=== PATIENT | female | born 1985 | race Hispanic/Latino ===

== ENCOUNTER 2019-01-18 03:09 | Inpatient (IN) ==
[2019-01-18 03:44] LABS: Hemoglobin 11.5 g/dL (12.0-16.0); Mean Corpuscular HGB CONC 32.8 g/dL (32.0-36.0); Mean Corpuscular Hemoglobin 27.6 pg (27.0-31.0); Mean Corpuscular Volume 84.3 fL (78.0-98.0); Mean Platelet Volume 9.1 fL (7.4-10.4); Platelet Count 221 thou/uL (130-400); Red Blood Cell (RBC) Count 4.17 mill/uL (4.20-5.40); White Blood Cell (WBC) Count 20.3 thou/uL (4.8-10.8)
[2019-01-18 03:55] LABS: BHCG - Serum Negative (NEGATIVE); Pregs Control Background? CLEAR/WHITE (CLR/WHITE); Pregs Control Bar Appear? YES (CONTROL BAR)
[2019-01-18 03:56] LABS: Band 7 % (5-11); Lymphocytes 30 % (21-51); MDiff Complete? YES; Metamyelocyte 1 % (0-0); Monocytes 1 % (0-10); Neutrophil 61 % (42-75); Platelet Morphology Comment Appears Adequate
[2019-01-18 04:06] LABS: Acetaminophen Less than 6.0 mcg/mL (10.0-30.0); Alcohol 169 mg/dL (Less than 10); Salicylate Less than 8.0 mg/dL (15.0-30.0)
[2019-01-18 04:07] LABS: ALT (SGPT) 67 U/L (8-55); AST (SGOT) 128 U/L (5-34); Albumin 3.9 g/dL (3.5-5.0); Alcohol 170 mg/dL (Less than 10); Alkaline Phosphatase 121 U/L (40-150); Anion Gap 12 mmol/L (10-20); BUN (Urea Nitrogen) 5 mg/dL (7.0-18.7); Bilirubin, Total 0.2 mg/dL (0.2-1.2); Calc. Creatinine Clearance 0 mL/min (70-130); Calcium 8.2 mg/dL (7.8-10.44); Carbon Dioxide 20 mmol/L (22-29); Chloride 107 mmol/L (98-107); Estimated GFR-MDRD 69; Globulin 3.4 g/dL (2.4-3.5); Glucose 233 mg/dL (70-105); Lipase 47 U/L (8-78); Potassium 3.3 mmol/L (3.5-5.1); Protein, Total 7.3 g/dL (6.0-8.3); Sodium 136 mmol/L (136-145)
[2019-01-18 05:32] LABS: Bilirubin Negative (Negative); Blood, Urine Large (Negative); Clarity CLEAR (Clear); Glucose, Urine (Dipstick) 100 mg/dL (Negative); Leukocyte Negative (Negative); Nitrite Negative (Negative); Protein, Urine (Dipstick) Negative (Neg-Trace); Urobilinogen 0.2 mg/dL (0.2-1.0)
[2019-01-18 05:34] LABS: Bacteria/HPF None Seen HPF (None Seen); RBC/HPF 0-3 HPF (0-3)
[2019-01-18 05:44] LABS: Amphetamine Not Detected (NotDetected); Barbiturates Screen Not Detected (NotDetected); Benzodiazepine Screen Not Detected (NotDetected); Cocaine Metabolite Screen Not Detected (NotDetected); Medtox Control Line Valid? VALID (VALID); Medtox Reader # READER 1; Methadone Not Detected (NotDetected); Methamphetamine Not Detected (NotDetected); Opiate Screen Not Detected (NotDetected); Oxycodone Screen Not Detected (NotDetected); Phencyclidine (PCP) Not Detected (NotDetected); THC/Cannabinoid Screen Not Detected (NotDetected); Tricyclic Screen Not Detected (NotDetected)
[2019-01-18 05:46] LABS: Hyaline Casts/LPF 0-3 HYALINE CAST LPF (0-3 Hyaline); Other Casts/LPF None Seen LPF (0-3 Hyaline); Oval Fat Bodies/HPF None Seen HPF (None Seen); Pathc Cast-AUWi Flag 2.99 (0-2.49); Renal Epithelial 0-3 HPF (0-3); Sperm/HPF None Seen HPF (None Seen); Transitional Epithelial NONE SEEN HPF (0-3); Trichomonas/HPF None Seen HPF (None Seen); Yeast-All Forms None Seen HPF (None Seen)
[2019-01-18] MEDS ORDERED: Ondansetron PF 4 MG/2 ML Vial ONE ×2 (06:04→11:38)
[2019-01-18 06:35] VITALS: BMI 36.0
[2019-01-18] MEDS ORDERED: Promethazine HCl 25 MG/ML VIAL IM PRN ×3 (06:38→11:45)
[2019-01-18] MEDS ORDERED: Dextrose 50% Abboject 50 ML SYRINGE SLOW IVP PRN (06:38)
[2019-01-18] MEDS ORDERED: Dextrose 5% in Water 1,000 ML IV PRN (06:38)
[2019-01-18] MEDS ORDERED: Ketorolac Tromethamine 30 MG/ML VIAL IVP SCH ×2 (06:38→12:00)
[2019-01-18] MEDS ORDERED: Sodium Chloride 0.9% 1,000 ML IV SCH ×2 (06:38→23:30)
[2019-01-18] MEDS ORDERED: Morphine 4 MG/ML VIAL SLOW IVP PRN (06:38)
[2019-01-18] MEDS ORDERED: Ondansetron ODT 4 MG TAB PO PRN (06:38)
[2019-01-18] MEDS ORDERED: Acetaminophen 1,000 MG in Premix Bag 1 BAG IVPB SCH (06:38)
[2019-01-18 06:39] LABS: INR-International Normal Ratio 1.1; Prothrombin Time 14.2 SEC (12.0-14.7)
[2019-01-18 06:40] LABS: PTT 20.2 SEC (22.9-36.1)
[2019-01-18] MEDS ORDERED: Morphine 2 MG/ML SYRINGE SLOW IVP PRN (07:45)
[2019-01-18] MEDS ORDERED: Acetaminophen 500 MG TAB PO PRN (08:00)
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
[2019-01-18] MEDS ORDERED: Fentanyl 100 MCG/2 ML VIAL ONE ×2 (09:13→12:17)
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
--- NOTE | 2019-01-18 10:46 | RAD ---
XR Forearm Lt 2 View STANDARD HISTORY: Intraoperative film COMPARISON: Plain film examination done earlier today. FINDINGS: 2 C-arm films show open reduction internal fixation of midshaft radius and ulnar fractures with plate and screws. IMPRESSION: Open reduction internal fixation midshaft radial and ulnar fractures.
[2019-01-18] MEDS: Famotidine 20 MG TAB PO SCH ×3 (11:06→20:16)
[2019-01-18] MEDS ORDERED: Lidocaine 1% PF 5 ML VIAL ONE (11:38)
[2019-01-18] MEDS ORDERED: Ketorolac Tromethamine 30 MG/ML VIAL ONE (11:38)
[2019-01-18] MEDS ORDERED: Succinylcholine Chloride 20 MG/ML 10 ml SYRINGE FS ONE (11:38)
[2019-01-18] MEDS ORDERED: PROPOFOL 200 MG/20 ML VIAL ONE (11:38)
[2019-01-18] MEDS ORDERED: PHENYLEPHRINE-NS 100 MCG/ML 10 ML SYRINGE ONE (11:38)
[2019-01-18] MEDS ORDERED: Iopamidol 370 76% 100 ML VIAL ONE (11:42)
[2019-01-18] MEDS ORDERED: Promethazine HCl 25 MG/ML VIAL SLOW IVP PRN (11:45)
[2019-01-18] MEDS ORDERED: Ondansetron HCl/PF 4 MG/2 ML Vial IVP PRN (11:45)
[2019-01-18] MEDS ORDERED: Lidocaine 2% PF 100 mg/5 ml Syringe ONE (14:22)
[2019-01-18] MEDS ORDERED: Lidocaine 1% (PF) 30 ML VIAL ONE (14:22)
[2019-01-18] MEDS ORDERED: traMADol HCl 50 MG TAB PO PRN ×2 (14:31→22:25)
[2019-01-18] MEDS: Ondansetron PF 4 MG/2 ML Vial IVP PRN (14:34)
[2019-01-18] MEDS: CEFAZOLIN 2 GM in Premix Bag 1 BAG IVPB SCH ×2 (14:37→21:10)
[2019-01-18] MEDS ORDERED: traMADol HCl 50 MG TAB PO SCH ×2 (14:45→23:59)
[2019-01-18] MEDS ORDERED: Acetaminophen 325 MG TAB PO SCH (14:45)
[2019-01-18] MEDS ORDERED: Ibuprofen 600 MG TAB PO SCH (18:00)
[2019-01-18] MEDS: Acetaminophen 325 MG TAB PO SCH ×2 (18:58→23:23)
[2019-01-18] MEDS: Ibuprofen 600 MG TAB PO SCH (20:16)
[2019-01-18] MEDS: Gabapentin 300 MG CAP PO SCH (20:17)
[2019-01-18] MEDS ORDERED: Morphine 2 MG/ML SYRINGE SLOW IVP SCH (20:45)
[2019-01-18 21:22] LABS: Hemoglobin 11.6 g/dL (12.0-16.0); Mean Corpuscular HGB CONC 31.8 g/dL (32.0-36.0); Mean Corpuscular Hemoglobin 27.3 pg (27.0-31.0); Mean Corpuscular Volume 85.9 fL (78.0-98.0); Mean Platelet Volume 8.3 fL (7.4-10.4); Platelet Count 238 thou/uL (130-400); RBC Distribution Width 13.4 % (11.5-14.5); Red Blood Cell (RBC) Count 4.24 mill/uL (4.20-5.40); White Blood Cell (WBC) Count 26.7 thou/uL (4.8-10.8)
[2019-01-18 21:42] LABS: Band 22 % (5-11); Lymphocytes 7 % (21-51); MDiff Complete? YES; Monocytes 4 % (0-10); Neutrophil 67 % (42-75); Platelet Morphology Comment Appears Adequate; RBC Morphology Normal
[2019-01-18] MEDS: traMADol HCl 50 MG TAB PO PRN (23:23)
[2019-01-18] MEDS ORDERED: Sodium Chloride 0.9% 500 ML IV SCH (23:30)
[2019-01-19] MEDS: Ibuprofen 600 MG TAB PO SCH ×3 (03:36→14:50)
[2019-01-19] MEDS: Acetaminophen 325 MG TAB PO SCH ×2 (05:08→11:51)
[2019-01-19] MEDS: traMADol HCl 50 MG TAB PO PRN (05:08)
[2019-01-19 05:40] LABS: Band 25 % (5-11); Hemoglobin 11.3 g/dL (12.0-16.0); Lymphocytes 8 % (21-51); MDiff Complete? YES; Mean Corpuscular HGB CONC 30.8 g/dL (32.0-36.0); Mean Corpuscular Hemoglobin 26.4 pg (27.0-31.0); Mean Corpuscular Volume 85.8 fL (78.0-98.0); Mean Platelet Volume 8.7 fL (7.4-10.4); Metamyelocyte 1 % (0-0); Monocytes 2 % (0-10); Neutrophil 64 % (42-75); Platelet Count 229 thou/uL (130-400); Platelet Morphology Comment Appears Adequate; RBC Distribution Width 13.4 % (11.5-14.5); RBC Morphology Normal; Red Blood Cell (RBC) Count 4.27 mill/uL (4.20-5.40); White Blood Cell (WBC) Count 28.7 thou/uL (4.8-10.8)
[2019-01-19 05:43] LABS: Anion Gap 14 mmol/L (10-20); BUN (Urea Nitrogen) 13 mg/dL (7.0-18.7); Calc. Creatinine Clearance 124 mL/min (70-130); Calcium 7.6 mg/dL (7.8-10.44); Carbon Dioxide 19 mmol/L (22-29); Chloride 106 mmol/L (98-107); Estimated GFR-MDRD 76; Glucose 144 mg/dL (70-105); Potassium 3.9 mmol/L (3.5-5.1); Sodium 135 mmol/L (136-145)
[2019-01-19] MEDS: Gabapentin 300 MG CAP PO SCH ×2 (08:53→20:58)
[2019-01-19] MEDS: Famotidine 20 MG TAB PO SCH (08:53)
[2019-01-19 09:15] LABS: Magnesium 1.2 mg/dL (1.6-2.6); Phosphorus 3.2 mg/dL (2.3-4.7)
[2019-01-19] MEDS ORDERED: Magnesium Sulfate 4 GM in Sodium Chloride 0.9% 250 ML 250 ML IVPB SCH (10:45)
[2019-01-19] MEDS: Sodium Chloride 0.9% 1,000 ML IV SCH ×2 (11:30→18:57)
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
[2019-01-19] MEDS ORDERED: Bupivacaine/Epinephrine 0.25% 30 ML VIAL ONE (13:06)
[2019-01-19] MEDS ORDERED: Fentanyl 100 MCG/2 ML VIAL ONE (13:10)
[2019-01-19] MEDS: Piperacillin/Tazobactam 3.375 GM in Sodium Chloride 0.9% 100 ML IVPB SCH ×3 (13:58→23:39)
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
[2019-01-19] MEDS ORDERED: Lidocaine 2% PF 5 ML VIAL ONE (16:34)
[2019-01-19] MEDS ORDERED: Glycopyrrolate 0.2 MG/ML 5 ML SYRINGE ONE (16:34)
[2019-01-19] MEDS ORDERED: diphenhydrAMINE 50 MG/ML VIAL ONE (16:34)
[2019-01-19] MEDS ORDERED: Dexamethasone 20 MG/5 ML VIAL ONE (16:34)
[2019-01-19] MEDS ORDERED: Ondansetron PF 4 MG/2 ML Vial ONE (16:34)
[2019-01-19] MEDS ORDERED: Rocuronium Bromide 10 MG/ML (10ML VIAL) ONE (16:34)
[2019-01-19] MEDS ORDERED: Ketorolac Tromethamine 30 MG/ML VIAL ONE (16:34)
[2019-01-19] MEDS ORDERED: PROPOFOL 200 MG/20 ML VIAL ONE (16:34)
[2019-01-19] MEDS ORDERED: diphenhydrAMINE 25 MG CAP PO PRN (17:19)
[2019-01-19] MEDS ORDERED: diphenhydrAMINE 50 MG/ML VIAL IM PRN (17:19)
[2019-01-19] MEDS ORDERED: Naloxone HCl 0.4 mg/ml Vial IV PRN (17:19)
[2019-01-19] MEDS ORDERED: HYDROmorphone 10 mg/100 ml CADD IVPB PRN (17:19)
[2019-01-19] MEDS ORDERED: diphenhydrAMINE 50 MG/ML VIAL IVP PRN (17:19)
[2019-01-19] MEDS ORDERED: Communication Order-Pharmacy FS SCH (17:30)
[2019-01-19] MEDS: Ketorolac Tromethamine 30 MG/ML VIAL IVP SCH ×2 (17:42→23:40)
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
[2019-01-19] MEDS: Famotidine/PF 20 mg/2ml Vial SLOW IVP SCH (20:58)
[2019-01-20] MEDS ORDERED: Acetaminophen 1,000 MG in Premix Bag 1 BAG IVPB PRN (03:44)
[2019-01-20] MEDS: Benzocaine 20% Spray 60 ML CAN PO PRN ×3 (03:56→20:24)
[2019-01-20] MEDS: Sodium Chloride 0.9% 1,000 ML IV SCH ×3 (04:19→14:59)
[2019-01-20 04:31] LABS: Bilirubin Negative (Negative); Blood, Urine Large (Negative); Clarity TURBID (Clear); Glucose, Urine (Dipstick) Negative (Negative); Leukocyte Negative (Negative); Nitrite Negative (Negative); Protein, Urine (Dipstick) 100 mg/dL (Neg-Trace); Urobilinogen 0.2 mg/dL (0.2-1.0)
[2019-01-20 04:34] LABS: Bacteria/HPF None Seen HPF (None Seen)
[2019-01-20 04:44] LABS: Pathc Cast-AUWi Flag 2.85 (0-2.49)
[2019-01-20 05:03] LABS: Trichomonas/HPF None Seen HPF (None Seen); Yeast-All Forms None Seen HPF (None Seen)
[2019-01-20 05:05] LABS: Crystals/HPF 4+ AMORPH URATES HPF (Negative); Urine Culture Reflex No No
[2019-01-20 05:40] LABS: Band 44 % (5-11); Lymphocytes 3 % (21-51); MDiff Complete? YES; Mean Corpuscular HGB CONC 31.4 g/dL (32.0-36.0); Mean Platelet Volume 8.8 fL (7.4-10.4); Monocytes 3 % (0-10); Neutrophil 50 % (42-75); Platelet Count 209 thou/uL (130-400); Platelet Morphology Comment Appears Adequate; RBC Distribution Width 13.4 % (11.5-14.5); Red Blood Cell (RBC) Count 3.69 mill/uL (4.20-5.40); White Blood Cell (WBC) Count 26.7 thou/uL (4.8-10.8)
[2019-01-20 05:49] LABS: ALT (SGPT) 35 U/L (8-55); AST (SGOT) 87 U/L (5-34); Albumin 2.6 g/dL (3.5-5.0); Alkaline Phosphatase 65 U/L (40-150); Anion Gap 11 mmol/L (10-20); BUN (Urea Nitrogen) 17 mg/dL (7.0-18.7); Bilirubin, Total 0.3 mg/dL (0.2-1.2); Calc. Creatinine Clearance 124 mL/min (70-130); Calcium 7.8 mg/dL (7.8-10.44); Carbon Dioxide 20 mmol/L (22-29); Chloride 108 mmol/L (98-107); Estimated GFR-MDRD 76; Globulin 2.7 g/dL (2.4-3.5); Glucose 135 mg/dL (70-105); Magnesium 2.1 mg/dL (1.6-2.6); Potassium 4.2 mmol/L (3.5-5.1); Protein, Total 5.3 g/dL (6.0-8.3); Sodium 135 mmol/L (136-145)
[2019-01-20] MEDS: Ketorolac Tromethamine 30 MG/ML VIAL IVP SCH ×4 (06:10→23:45)
[2019-01-20] MEDS: Piperacillin/Tazobactam 3.375 GM in Sodium Chloride 0.9% 100 ML IVPB SCH ×4 (06:12→23:45)
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
[2019-01-20] MEDS: Gabapentin 300 MG CAP PO SCH ×2 (09:44→20:27)
[2019-01-20] MEDS: Famotidine/PF 20 mg/2ml Vial SLOW IVP SCH ×2 (09:46→20:24)
[2019-01-20] MEDS ORDERED: PHOS-NAK 1 PKT PACK PO SCH (10:00)
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
[2019-01-20] MEDS ORDERED: Potassium Phosphate 15 MMOL in Sodium Chloride 0.9% 250 ML 250 ML IVPB SCH (13:00)
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
[2019-01-21] MEDS: Sodium Chloride 0.9% 1,000 ML IV SCH ×2 (04:37→18:02)
[2019-01-21] MEDS: Piperacillin/Tazobactam 3.375 GM in Sodium Chloride 0.9% 100 ML IVPB SCH ×3 (05:27→18:02)
[2019-01-21] MEDS: Ketorolac Tromethamine 30 MG/ML VIAL IVP SCH ×2 (05:27→13:35)
[2019-01-21 05:38] LABS: Band 17 % (5-11); Hypochromia SLIGHT = 6-15 cells (100X) (0-5/hpf); Lymphocytes 6 % (21-51); MDiff Complete? YES; Mean Corpuscular HGB CONC 32.3 g/dL (32.0-36.0); Mean Corpuscular Hemoglobin 27.4 pg (27.0-31.0); Mean Corpuscular Volume 84.8 fL (78.0-98.0); Mean Platelet Volume 8.2 fL (7.4-10.4); Neutrophil 77 % (42-75); Platelet Count 208 thou/uL (130-400); Platelet Morphology Comment Appears Adequate; RBC Distribution Width 13.3 % (11.5-14.5); Red Blood Cell (RBC) Count 2.92 mill/uL (4.20-5.40); White Blood Cell (WBC) Count 17.6 thou/uL (4.8-10.8)
[2019-01-21 05:43] LABS: Anion Gap 10 mmol/L (10-20); BUN (Urea Nitrogen) 23 mg/dL (7.0-18.7); Calc. Creatinine Clearance 135 mL/min (70-130); Calcium 7.9 mg/dL (7.8-10.44); Carbon Dioxide 22 mmol/L (22-29); Chloride 111 mmol/L (98-107); Estimated GFR-MDRD 84; Glucose 91 mg/dL (70-105); Phosphorus 2.2 mg/dL (2.3-4.7); Potassium 3.7 mmol/L (3.5-5.1); Sodium 139 mmol/L (136-145)
[2019-01-21] MEDS ORDERED: PHOS-NAK 1 PKT PACK PO SCH (07:30)
[2019-01-21] MEDS: Famotidine/PF 20 mg/2ml Vial SLOW IVP SCH ×2 (08:49→20:33)
[2019-01-21] MEDS: Gabapentin 300 MG CAP PO SCH ×2 (09:32→20:33)
[2019-01-21] MEDS: Enoxaparin Sodium 30 MG/0.3 ML SYRINGE SC SCH ×2 (10:21→20:33)
[2019-01-21] MEDS ORDERED: Ibuprofen 600 MG TAB PO SCH (12:00)
[2019-01-21] MEDS ORDERED: Potassium Phosphate 15 MMOL in Sodium Chloride 0.9% 250 ML 250 ML IVPB SCH (13:00)
[2019-01-21] MEDS: Acetaminophen 500 MG TAB PO SCH ×2 (13:01→18:03)
[2019-01-21] MEDS: traMADol HCl 50 MG TAB PO SCH ×2 (13:02→18:03)
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
[2019-01-21] MEDS: Ibuprofen 600 MG TAB PO SCH (20:33)
[2019-01-22] MEDS: traMADol HCl 50 MG TAB PO SCH ×5 (00:12→23:41)
[2019-01-22] MEDS: Piperacillin/Tazobactam 3.375 GM in Sodium Chloride 0.9% 100 ML IVPB SCH ×2 (00:12→05:33)
[2019-01-22] MEDS: Acetaminophen 500 MG TAB PO SCH ×5 (00:12→23:41)
[2019-01-22] MEDS: Sodium Chloride 0.9% 1,000 ML IV SCH ×2 (04:12→05:34)
[2019-01-22] MEDS: Ondansetron PF 4 MG/2 ML Vial IVP PRN (04:17)
[2019-01-22] MEDS: Ibuprofen 600 MG TAB PO SCH ×4 (04:23→20:40)
[2019-01-22 06:05] LABS: Band 15 % (5-11); Hemoglobin 7.7 g/dL (12.0-16.0); Lymphocytes 5 % (21-51); MDiff Complete? YES; Mean Corpuscular HGB CONC 32.6 g/dL (32.0-36.0); Mean Corpuscular Hemoglobin 27.7 pg (27.0-31.0); Mean Platelet Volume 7.8 fL (7.4-10.4); Monocytes 4 % (0-10); Neutrophil 76 % (42-75); Platelet Count 208 thou/uL (130-400); Platelet Morphology Comment Appears Adequate; RBC Distribution Width 13.4 % (11.5-14.5); Red Blood Cell (RBC) Count 2.76 mill/uL (4.20-5.40); White Blood Cell (WBC) Count 13.5 thou/uL (4.8-10.8)
[2019-01-22 06:07] LABS: Anion Gap 10 mmol/L (10-20); BUN (Urea Nitrogen) 21 mg/dL (7.0-18.7); Calc. Creatinine Clearance 148 mL/min (70-130); Calcium 7.8 mg/dL (7.8-10.44); Carbon Dioxide 19 mmol/L (22-29); Chloride 112 mmol/L (98-107); Estimated GFR-MDRD Greater than 90; Glucose 91 mg/dL (70-105); Magnesium 1.9 mg/dL (1.6-2.6); Phosphorus 3.1 mg/dL (2.3-4.7); Potassium 3.4 mmol/L (3.5-5.1); Sodium 138 mmol/L (136-145)
[2019-01-22] MEDS ORDERED: Senokot 8.6 MG TAB PO SCH (08:45)
[2019-01-22] MEDS: Enoxaparin Sodium 30 MG/0.3 ML SYRINGE SC SCH ×2 (09:58→20:39)
[2019-01-22] MEDS: Famotidine/PF 20 mg/2ml Vial SLOW IVP SCH ×2 (09:58→20:40)
[2019-01-22] MEDS: Gabapentin 300 MG CAP PO SCH ×2 (09:59→20:40)
[2019-01-22] MEDS: Polyethylene Glycol 3350 17 GM Packet PO SCH (10:09)
[2019-01-22] MEDS ORDERED: PHOS-NAK 1 PKT PACK PO SCH (13:30)
[2019-01-22] MEDS ORDERED: Potassium Chloride 20 MEQ TAB PO SCH (13:30)
[2019-01-22] MEDS: Ferrous Sulfate 325 MG TAB PO SCH (17:42)
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
[2019-01-23] MEDS: Ibuprofen 600 MG TAB PO SCH ×2 (02:51→08:53)
[2019-01-23] MEDS: Acetaminophen 500 MG TAB PO SCH ×2 (05:35→12:49)
[2019-01-23] MEDS: traMADol HCl 50 MG TAB PO SCH ×2 (05:35→12:50)
[2019-01-23 05:39] LABS: #Eosinphils 0.1 thou/uL (0.0-0.7); #Lymphocytes 1.9 thou/uL (1.20-3.40); #Monocytes 1.5 thou/uL (0.11-0.59); #Neutrophils 11.9 thou/uL (1.40-6.50); %Basophils 0.1 % (0.0-1.0); %Eosinophils 0.6 % (0.0-10.0); %Lymphocytes 12.4 % (21.0-51.0); %Monocytes 9.6 % (0.0-10.0); %Neutrophils 77.3 % (42.0-75.0); Hemoglobin 8.5 g/dL (12.0-16.0); Mean Corpuscular HGB CONC 31.8 g/dL (32.0-36.0); Mean Corpuscular Hemoglobin 26.9 pg (27.0-31.0); Mean Corpuscular Volume 84.7 fL (78.0-98.0); Mean Platelet Volume 8.4 fL (7.4-10.4); Platelet Count 244 thou/uL (130-400); RBC Distribution Width 13.6 % (11.5-14.5); Red Blood Cell (RBC) Count 3.15 mill/uL (4.20-5.40); White Blood Cell (WBC) Count 15.4 thou/uL (4.8-10.8)
[2019-01-23 05:59] LABS: Anion Gap 11 mmol/L (10-20); BUN (Urea Nitrogen) 15 mg/dL (7.0-18.7); Calc. Creatinine Clearance 164 mL/min (70-130); Calcium 8.5 mg/dL (7.8-10.44); Carbon Dioxide 22 mmol/L (22-29); Chloride 112 mmol/L (98-107); Estimated GFR-MDRD Greater than 90; Glucose 82 mg/dL (70-105); Magnesium 1.7 mg/dL (1.6-2.6); Phosphorus 3.2 mg/dL (2.3-4.7); Potassium 3.6 mmol/L (3.5-5.1); Sodium 141 mmol/L (136-145)
[2019-01-23] MEDS ORDERED: Magnesium 2 GM/50 ML 2 GM in Premix Bag 1 BAG IVPB SCH (07:15)
[2019-01-23] MEDS ORDERED: PHOS-NAK 1 PKT PACK PO SCH (07:15)
[2019-01-23] MEDS ORDERED: Potassium Chloride 20 MEQ TAB PO SCH (08:00)
[2019-01-23] MEDS: Polyethylene Glycol 3350 17 GM Packet PO SCH (08:52)
[2019-01-23] MEDS: Ferrous Sulfate 325 MG TAB PO SCH (08:52)
[2019-01-23] MEDS: Gabapentin 300 MG CAP PO SCH (08:53)
[2019-01-23] MEDS: Enoxaparin Sodium 30 MG/0.3 ML SYRINGE SC SCH (08:53)
[2019-01-23] MEDS ORDERED: Ascorbic Acid 500 mg Chewable Tablet PO SCH (09:00)
[2019-01-23] MEDS ORDERED: Famotidine 20 MG TAB PO SCH (09:00)
[2019-01-23 09:46] LABS: Band 8 % (5-11); Eosinophils 2 % (0-10); Hemoglobin 8.6 g/dL (12.0-16.0); Lymphocytes 10 % (21-51); MDiff Complete? YES; Mean Corpuscular HGB CONC 31.8 g/dL (32.0-36.0); Mean Corpuscular Hemoglobin 27.5 pg (27.0-31.0); Mean Corpuscular Volume 86.6 fL (78.0-98.0); Mean Platelet Volume 8.2 fL (7.4-10.4); Metamyelocyte 1 % (0-0); Monocytes 6 % (0-10); Neutrophil 73 % (42-75); Platelet Count 265 thou/uL (130-400); RBC Distribution Width 13.8 % (11.5-14.5); Red Blood Cell (RBC) Count 3.11 mill/uL (4.20-5.40); White Blood Cell (WBC) Count 17.1 thou/uL (4.8-10.8)
[2019-01-23 11:19] VITALS: BP 134/88; TEMP 97.4
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
== END 2019-01-23 13:15 | disposition home or self-care (01) | DRG 510 ==
LOC: EDBD 03:09 → ERS 03:09 → SURG A 04:40
PROVIDERS: ADMIT Surgery; ATTEND Surgery
PROC: 0PSJ04Z Reposition Left Radius with Internal Fixation Device, Open Approach (ICD-10-PCS; principal; 2019-01-18)
PROC: 0PSL04Z Reposition Left Ulna with Internal Fixation Device, Open Approach (ICD-10-PCS; 2019-01-18)
PROC: 0DB80ZZ Excision of Small Intestine, Open Approach (ICD-10-PCS; 2019-01-19)
PROC: 0WJH4ZZ Inspection of Retroperitoneum, Percutaneous Endoscopic Approach (ICD-10-PCS; 2019-01-19)
DX: S52.302A Unspecified fracture of shaft of left radius, initial encounter for closed fracture (principal); K65.8 Other peritonitis; K55.019 Acute (reversible) ischemia of small intestine, extent unspecified; K63.1 Perforation of intestine (nontraumatic); S52.202A Unspecified fracture of shaft of left ulna, initial encounter for closed fracture; V89.2XXA Person injured in unspecified motor-vehicle accident, traffic, initial encounter; Y93.89 Activity, other specified
CPT/HCPCS: 29125; 36415; 51702; 70450; 70486; 71260; 72125; 72170; 74177; 76000; 80048; 80053; 80306; 80307; 81001; 81003; 81015; 82150; 83690; 83735; 84100; 84703; 85007; 85025; 85027; 85610; 85730; 86850; 86900; 86901; 88307; 96374; C1713; G0390; J0131; J0690; J1100; J1200; J1650; J1885; J2001; J2270; J2405; J2543; J2704; J3010; J3475; J3490; J7050; Q9967; S0028

== ENCOUNTER 2019-09-13 22:10 | Observation (INO) | payer BC ==
[2019-09-13] MEDS ORDERED: Ketorolac Tromethamine 30 MG/ML VIAL ONE (22:53)
[2019-09-13] MEDS ORDERED: Morphine 4 MG/ML VIAL ONE (22:53)
[2019-09-13] MEDS ORDERED: Ondansetron PF 4 MG/2 ML Vial ONE (22:53)
[2019-09-13 22:59] LABS: #Basophils 0.1 thou/uL (0.0-0.2); #Eosinphils 0.1 thou/uL (0.0-0.7); #Lymphocytes 2.7 thou/uL (1.20-3.40); #Monocytes 0.7 thou/uL (0.11-0.59); #Neutrophils 11.9 thou/uL (1.40-6.50); %Basophils 0.5 % (0.0-1.0); %Eosinophils 0.8 % (0.0-10.0); %Lymphocytes 17.6 % (21.0-51.0); %Monocytes 4.6 % (0.0-10.0); %Neutrophils 76.5 % (42.0-75.0); Hemoglobin 11.7 g/dL (12.0-16.0); Mean Corpuscular HGB CONC 33.2 g/dL (32.0-36.0); Mean Corpuscular Hemoglobin 28.2 pg (27.0-31.0); Mean Corpuscular Volume 84.9 fL (78.0-98.0); Mean Platelet Volume 8.4 fL (7.4-10.4); Platelet Count 311 thou/uL (130-400); RBC Distribution Width 13.1 % (11.5-14.5); Red Blood Cell (RBC) Count 4.15 mill/uL (4.20-5.40); White Blood Cell (WBC) Count 15.5 thou/uL (4.8-10.8)
[2019-09-13 23:07] LABS: BHCG - Serum Negative (NEGATIVE); Pregs Control Background? CLEAR/WHITE (CLR/WHITE); Pregs Control Bar Appear? YES (CONTROL BAR)
[2019-09-13 23:15] LABS: ALT (SGPT) 13 U/L (8-55); AST (SGOT) 14 U/L (5-34); Albumin 4.2 g/dL (3.5-5.0); Alkaline Phosphatase 126 U/L (40-110); Anion Gap 10 mmol/L (10-20); BUN (Urea Nitrogen) 12 mg/dL (7.0-18.7); Bilirubin, Total 0.2 mg/dL (0.2-1.2); Calc. Creatinine Clearance 0 mL/min (70-130); Calcium 9.2 mg/dL (7.8-10.44); Carbon Dioxide 28 mmol/L (22-29); Chloride 104 mmol/L (98-107); Estimated GFR-MDRD 79; Globulin 3.4 g/dL (2.4-3.5); Glucose 111 mg/dL (70-105); Lipase 15 U/L (8-78); Protein, Total 7.6 g/dL (6.0-8.3); Sodium 138 mmol/L (136-145)
--- NOTE | 2019-09-13 23:34 | CT ---
CT abdomen and pelvis noncontrast HISTORY: Right flank pain. FINDINGS: Each renal collecting system, ureter, and urinary bladder are decompressed. There is a 0.3 cm calculus within a nondilated calyx at the inferior pole of the left kidney. Lack of contrast limits evaluation for other abnormalities. Occasional diverticula arise from the col on without adjacent inflammation. Suture row at the distal ileum. Immediately proximal to the suture row, the ileum is mildly distended, 3.7 cm, with some fecalization of material. There is subtl e circumferential wall thickening of the distal ileum proximal to the anastomosis, over a segment of approximately 7 cm. Subtle stranding in the adjacent fat. No free air or free fluid. IMPRESSION: 3 mm nonobstructing left renal calculus. Partial obstruction at the distal ileal surgical anastomosis, favored to be chronic. There is inflamm atory changes involving and surrounding the bowel wall in region of fecalization and distention proximal to the anastomosis/partial obstruction. Cause for this acute appearing inflammation is not e vident. Diverticulosis.
[2019-09-13 23:49] LABS: Bacteria/HPF None Seen HPF (None Seen); Bilirubin Negative (Negative); Blood, Urine Negative (Negative); Clarity Clear (Clear); Glucose, Urine (Dipstick) Normal (Negative); Leukocyte 25 Leu/uL (Negative); Nitrite Negative (Negative); Protein, Urine (Dipstick) 10 mg/dL (Neg-Trace); RBC/HPF 0-3 HPF (0-3); Urobilinogen Normal mg/dL (Less than 2); WBC/HPF 0-3 HPF (0-3)
[2019-09-14] MEDS ORDERED: Piperacillin/Tazobactam 3.375 GM VIAL ONE (00:01)
[2019-09-14] MEDS ORDERED: Sodium Chloride 0.9% 1,000 ML IV SCH (00:59)
[2019-09-14] MEDS ORDERED: Ondansetron ODT 4 MG TAB SL PRN (00:59)
[2019-09-14] MEDS ORDERED: Acetaminophen 325 MG TAB PO PRN (00:59)
[2019-09-14] MEDS ORDERED: Ondansetron PF 4 MG/2 ML Vial IVP PRN ×2 (00:59→02:48)
[2019-09-14 01:45] VITALS: BMI 36.5
[2019-09-14] MEDS ORDERED: Ketorolac Tromethamine 30 MG/ML VIAL IVP PRN (02:06)
[2019-09-14] MEDS: Sodium Chloride 0.9% 1,000 ML IV SCH ×2 (02:48→21:17)
[2019-09-14] MEDS ORDERED: Ondansetron ODT 4 MG TAB PO PRN (02:48)
[2019-09-14] MEDS ORDERED: Acetaminophen 500 MG TAB PO PRN (02:48)
[2019-09-14] MEDS ORDERED: Sodium Chloride 0.9% 10 ML ONE (04:58)
[2019-09-14] MEDS ORDERED: Piperacillin/Tazobactam 3.375 GM in Sodium Chloride 0.9% 100 ML IVPB SCH (06:00)
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
[2019-09-14 06:27] LABS: Band 1 % (5-11); Hemoglobin 10.8 g/dL (12.0-16.0); Lymphocytes 21 % (21-51); MDiff Complete? YES; Mean Corpuscular HGB CONC 32.6 g/dL (32.0-36.0); Mean Corpuscular Hemoglobin 27.8 pg (27.0-31.0); Mean Corpuscular Volume 85.1 fL (78.0-98.0); Mean Platelet Volume 8.5 fL (7.4-10.4); Monocytes 4 % (0-10); Neutrophil 74 % (42-75); Platelet Count 280 thou/uL (130-400); Platelet Morphology Comment Appears Adequate; RBC Distribution Width 13.1 % (11.5-14.5); White Blood Cell (WBC) Count 13.9 thou/uL (4.8-10.8)
[2019-09-14 06:36] LABS: ALT (SGPT) 10 U/L (8-55); AST (SGOT) 11 U/L (5-34); Albumin 3.5 g/dL (3.5-5.0); Alkaline Phosphatase 106 U/L (40-110); Anion Gap 10 mmol/L (10-20); BUN (Urea Nitrogen) 12 mg/dL (7.0-18.7); Bilirubin, Total 0.3 mg/dL (0.2-1.2); Calc. Creatinine Clearance 139 mL/min (70-130); Calcium 8.2 mg/dL (7.8-10.44); Carbon Dioxide 24 mmol/L (22-29); Chloride 108 mmol/L (98-107); Estimated GFR-MDRD 86; Globulin 2.8 g/dL (2.4-3.5); Glucose 119 mg/dL (70-105); Potassium 4.1 mmol/L (3.5-5.1); Protein, Total 6.3 g/dL (6.0-8.3); Sodium 138 mmol/L (136-145)
[2019-09-14] MEDS ORDERED: FLU VACC QS2019-20(6MOS UP)/PF 60 MCG/0.5 ML SYRINGE IM ONE (09:00)
--- NOTE | 2019-09-14 11:12 | ULT ---
US Gallbladder RUQ: 09/14/2019 10:16 AM CLINICAL HISTORY: Right upper quadrant abdominal pain. STUDY: Limited right upper quadrant ultrasound of abdomen. COMPARISON: None. FINDINGS: Liver: Size: Normal. Echogenicity: Normal. Contour: Smooth. Mass: None. Bile ducts: No intrahepatic or extrahepatic biliary dilatation. Common bile duct measures 4 mm. Gallbladder: 3 mm nonshadowing echogenic focus along the nondependent wall may represent a small chol esterol or adenomatous polyp. Pancreas: Head, body, and tail appear normal. Right kidney: No pelvicalyceal dilatation. Right kidney measuring 10.1 cm in length. IMPRESSION: Cholesterolosis versus adenomatous gallbladder polyp.
[2019-09-14] MEDS ORDERED: MD-Gastroview 120 ML BOT ONE (11:15)
[2019-09-14] MEDS: Famotidine/PF 20 mg/2ml Vial SLOW IVP SCH ×3 (11:27→21:16)
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
--- NOTE | 2019-09-14 20:35 | PDOC.BPN ---
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 This is a nonbillable visit encounter. She was admitted with abdominal pain found to have terminal ileitis on the CT imaging the abdomen pelvis. She was placed empirically on Zosyn. She is pending gastroenterology and general surgery consultation. She is set to undergo a small bowel follow-through as well as an ultrasound abdomen later today. We will continue to document formal progress on 09/15/2019.
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
[2019-09-15] MEDS: Sodium Chloride 0.9% 1,000 ML IV SCH (05:33)
[2019-09-15 06:08] LABS: #Eosinphils 0.2 thou/uL (0.0-0.7); #Lymphocytes 2.2 thou/uL (1.20-3.40); #Monocytes 0.5 thou/uL (0.11-0.59); #Neutrophils 6.9 thou/uL (1.40-6.50); %Basophils 0.3 % (0.0-1.0); %Eosinophils 1.7 % (0.0-10.0); %Lymphocytes 22.4 % (21.0-51.0); %Monocytes 5.5 % (0.0-10.0); %Neutrophils 70.3 % (42.0-75.0); Hemoglobin 9.9 g/dL (12.0-16.0); Mean Corpuscular HGB CONC 32.3 g/dL (32.0-36.0); Mean Corpuscular Hemoglobin 27.8 pg (27.0-31.0); Mean Corpuscular Volume 86.2 fL (78.0-98.0); Mean Platelet Volume 8.6 fL (7.4-10.4); Platelet Count 254 thou/uL (130-400); RBC Distribution Width 13.1 % (11.5-14.5); Red Blood Cell (RBC) Count 3.55 mill/uL (4.20-5.40); White Blood Cell (WBC) Count 9.8 thou/uL (4.8-10.8)
[2019-09-15 06:17] LABS: Anion Gap 8 mmol/L (10-20); BUN (Urea Nitrogen) 8 mg/dL (7.0-18.7); Calc. Creatinine Clearance 137 mL/min (70-130); Calcium 8.1 mg/dL (7.8-10.44); Carbon Dioxide 24 mmol/L (22-29); Chloride 110 mmol/L (98-107); Estimated GFR-MDRD 85; Glucose 87 mg/dL (70-105); Potassium 4.2 mmol/L (3.5-5.1); Sodium 138 mmol/L (136-145)
[2019-09-15] MEDS: Famotidine/PF 20 mg/2ml Vial SLOW IVP SCH (09:26)
--- NOTE | 2019-09-15 11:12 | PDOC.GSPN ---
Surgery Progress Note: Subj - Subjective Narrative: Patient is a 34 year old female hospital day 2 for possible small bowel obstruction. Patient is doing well today, tolerating regular diet without any nausea and vomiting. Patient reports multiple BM following her small bowel follow through. She reports passing flatus. Denies abdominal pain currently. Surgery Progress Note: Obj - Vital signs Vital signs: Vital Signs - Most Recent Temp Pulse Resp BP Pulse Ox 98.4 F 82 20 118/75 100 09/15/19 07:46 09/15/19 07:46 09/15/19 07:46 09/15/19 07:46 09/15/19 07:46 - Physical Exam General: no distress, well developed, well nourished Abdomen: soft, non tender, nondistended Psychiatric: memory intact, oriented to time, oriented to person, oriented to place, speech is normal Surgery Progress Note: Results - Labs Result Diagrams: 09/15/19 05:43 09/15/19 05:43 Lab results: Laboratory Results - last 24 hr 09/15/19 09/15/19 05:43 05:43 WBC 9.8 RBC 3.55 L Hgb 9.9 L Hct 30.6 L MCV 86.2 MCH 27.8 MCHC 32.3 RDW 13.1 Plt Count 254 MPV 8.6 Neutrophils % 70.3 Lymphocytes % 22.4 Monocytes % 5.5 Eosinophils % 1.7 Basophils % 0.3 Neutrophils # 6.9 H Lymphocytes # 2.2 Monocytes # 0.5 Eosinophils # 0.2 Basophils # 0.0 Sodium 138 Potassium 4.2 Chloride 110 H Carbon Dioxide 24 Anion Gap 8 L BUN 8 Creatinine 0.78 Estimated GFR (MDRD) 85 Glucose 87 Calcium 8.1 Surgery Progress Note: A/P - Plan Plan: Assessment: 1. Partial small bowel obstruction, resolved Plan: No evidence of small bowel obstruction on small bowel follow through. Patient reports BM after study and is passing flatus. She is tolerating regular diet and denies abdominal pain. No surgical indication at this this time. From a surgical standpoint, she can go home. No need for outpatient follow up with our clinic or PO antibiotics at discharge. Addendum - Physician - Physician Attestation Date/Time: 09/15/19 1330 I personally performed or re-performed the physical examination and medical decision making. I have verified all student documentation or findings, including history, physical exam and/or medical decision making.
[2019-09-15 11:34] VITALS: BP 137/88; TEMP 99.1
--- NOTE | 2019-09-15 16:41 | PDOC.BPN ---
- Brief Progress Note DISCHARGE SUMMARY LIVE [facility] Discharge Patient Name: CRISTIANO ZEPEDA Date of : 87 Patient Status: Observation Attending Provider: Matthew Ibarra Date: 09/15/19 16:39 Initialization Date: 09/15/19 16:39 Discharge - Disposition Disposition: HOME - Patient Instructions Pre-Printed Education: [facility] Care Plan Goals: See patient discharge instruction sheet for detailed teaching. Patient verbalizes understanding of medications and is able to verbalize follow-up care. See Discharge Plan for additional discharge information. Patient secured in private vehicle prior to departure. - Referrals and PCP Follow-Up Referrals and PCP Follow-Up: [facility] [Primary Care Provider] - - Activity Instructions Activity:: Activity as Tolerated - Nourishment Instructions Nourishment:: Regular Diet Additional Dietary Instructions:: FULL LIQUID DIET FOR NEXT 24 HOURS Course - Course Orders, Labs, Meds: Patient initially presenting with abdominal pain. Found to have a partial obstruction at the distal ileal surgical anastomosis on CT of the abdomen. There was some inflammatory changes surrounding the bowel wall region of equalization and distention. Patient underwent a therapeutic and diagnostic small bowel x-ray with Gastrografin. She had passage of stool and no small bowel obstruction was detected. After this her symptoms had resolved. At the time of discharge, she was tolerating a p.o. diet and was passing stool. She no longer had any abdominal pain. Cleared by consultants for d/c.
== END 2019-09-15 12:21 | disposition home or self-care (01) ==
LOC: ERS 22:10 → 3SE 23:58
PROVIDERS: ADMIT Family Medicine; ATTEND Family Medicine
DX: K56.600 Partial intestinal obstruction, unspecified as to cause (principal); K52.9 Noninfective gastroenteritis and colitis, unspecified; D64.9 Anemia, unspecified; K57.30 Diverticulosis of large intestine without perforation or abscess without bleeding; N20.0 Calculus of kidney; Z90.49 Acquired absence of other specified parts of digestive tract
CPT/HCPCS: 36415; 74176; 74250; 76705; 80048; 80053; 81003; 81015; 83690; 84703; 85007; 85025; 85027; 90471; 90686; 96361; 96366; 96374; 96375; 96376; G0008; G0378; J1885; J2270; J2405; J2543; J3490; Q9963; S0028